=== PATIENT | female | born 1940 | race Caucasian/White ===

== ENCOUNTER 2017-02-09 02:22 | Inpatient (IN) ==
--- NOTE | 2017-02-03 15:51 | EKG Report ---
Test Performed on : 02/03/2017 3:45:47 PM Test Reason : PAT Blood Pressure : / mmHG Vent. Rate : 056 BPM Atrial Rate : 056 BPM P-R Int : 168 ms QRS Dur : 084 ms QT Int : 490 ms P-R-T Axes : 078 000 049 degrees QTc Int : 472 ms Sinus bradycardia. 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
[2017-02-03 16:11] LABS: BILIRUBIN URINE NEGATIVE (NEGATIVE); BLOOD URINE NEGATIVE (NEGATIVE); COLOR YELLOW; GLUCOSE URINE NEGATIVE (NEGATIVE); LEUKOCYTES URINE LARGE (NEGATIVE); MANUAL DIFF NEEDED? NO; NITRITE URINE NEGATIVE (NEGATIVE); PROTEIN URINE NEGATIVE (NEGATIVE); SP GRAVITY URINE 1.015; TURBIDITY URINE CLEAR (CLEAR); UR EPITHELIAL CELLS <10 /HPF (<10); URINE BACTERIA NEGATIVE /HPF; URINE MICRO REVIEW NEEDED? NO; URINE RBC <10 /HPF (<10); URINE SOURCE CLEAN CATCH; UROBILINOGEN URINE NORMAL (NORMAL)
[2017-02-03 16:17] LABS: INR 0.97; PROTIME 10.2 Seconds (9.2-11.7)
[2017-02-03 16:19] LABS: BASO% 0.2 % (0.0-0.8); EOS% 3.2 % (0.0-10.0); HEMATOCRIT 27.2 % (37.0-47.0); HEMOGLOBIN 8.6 g/dL (12.0-16.0); IMM GRAN# 0.02 X1000 (0.0-0.04); IMM GRAN% 0.3 % (0.0-0.5); LYMPH# 1.99 X1000 (1.2-3.4); LYMPH% 31.8 % (20.5-51.1); MCH 29.6 PG (27-31); MCHC 31.6 g/dL (33-37); MCV 93.5 FL (81-99); MONO# 0.58 X1000 (0.11-0.59); MONO% 9.3 % (1.7-9.3); MPV 9.9 FL (7.4-10.4); NEUT% 55.2 % (42.2-75.2); PLT 296 X1000 (130-400); RBC 2.91 XMIL (4.2-5.4)
[2017-02-03 16:51] LABS: CALCIUM 8.9 mg/dL (8.8-10.2); POTASSIUM 3.9 mmol/L (3.5-5.1)
[2017-02-09] MEDS ORDERED: PEPCID ONE (05:38)
[2017-02-09] MEDS ORDERED: LR 1,000 ML ONE ×2 (05:39→10:28)
[2017-02-09] MEDS ORDERED: REGLAN ONE (05:39)
[2017-02-09] MEDS ORDERED: KEFZOL 2 GM/D5W 2 GM/50 ML IVPB ONE (05:53)
[2017-02-09] MEDS ORDERED: VANCOMYCIN ONE (06:51)
[2017-02-09] MEDS ORDERED: TORADOL ONE (06:51)
[2017-02-09] MEDS ORDERED: SODIUM CHLORIDE 0.9% ONE (06:52)
[2017-02-09] MEDS ORDERED: EXPAREL 1.3% ONE (06:52)
[2017-02-09] MEDS ORDERED: MARCAINE 0.25% PF/EPI 1:200,000 ONE (06:52)
[2017-02-09] MEDS ORDERED: NEOSPORIN G.U. IRRIGANT ONE (06:52)
[2017-02-09] MEDS ORDERED: CYKLOKAPRON 1,000 MG/NS 1,000 MG/100 ML IVPB ONE ×2 (06:52→08:50)
[2017-02-09] MEDS ORDERED: ANTIVERT PO PRN (07:32)
[2017-02-09] MEDS ORDERED: MORPHINE IV PRN (07:33)
[2017-02-09] MEDS ORDERED: NS 250 ML ONE (07:36)
[2017-02-09 08:17] LABS: URINE MICRO REVIEW NEEDED? NO; URINE SOURCE CATH
[2017-02-09 08:23] LABS: BILIRUBIN URINE NEGATIVE (NEGATIVE); BLOOD URINE NEGATIVE (NEGATIVE); COLOR YELLOW; GLUCOSE URINE NEGATIVE (NEGATIVE); LEUKOCYTES URINE NEGATIVE (NEGATIVE); NITRITE URINE NEGATIVE (NEGATIVE); PROTEIN URINE TRACE mg/dL (NEGATIVE); SP GRAVITY URINE 1.018; TURBIDITY URINE CLEAR (CLEAR); UROBILINOGEN URINE NORMAL (NORMAL)
[2017-02-09 08:25] LABS: UR EPITHELIAL CELLS <10 /HPF (<10); URINE BACTERIA NEGATIVE /HPF; URINE RBC <10 /HPF (<10); URINE WBC <10 /HPF (<10)
--- NOTE | 2017-02-09 09:29 | OPERATIVE NOTE ---
PROCEDURE DATE: 02/09/2017 PREOPERATIVE DIAGNOSIS: Degenerative joint disease, right knee. POSTOPERATIVE DIAGNOSIS: Degenerative joint disease, right knee. PROCEDURE: Right total knee replacement. SURGEON: Benjamin Garcia MD. ASSISTANTS: DEBO Gamino, and Darron Pinon RN. ANESTHESIA: Spinal. COMPLICATIONS: None. PROCEDURE IN DETAIL: This 76-year-old female presents for a right knee replacement. Risks, benefits, and no guarantees were discussed, and she is willing to proceed. She was taken to the operating room and satisfactory anesthesia obtained. The right knee was approached through an anterior incision and a medial parapatellar quad tendon sparing arthrotomy. The patella was everted and resurfaced with freehand technique. It was subluxed laterally and the distal femur exposed. An intramedullary hole was made in the distal femur and the distal femoral cutting block secured in 5 degrees of valgus. Femoral resection was then made and the femur sized to a size 5 narrow DePuy Attune femoral component. The 4 in 1 block was secured, and the anterior, posterior, and chamfer cuts sequentially made. A notch was created for the posterior stabilized design using the provided notch guide. Afterwards, the knee was flexed and then a PCL retractor placed behind the tibia to protect the neurovascular bundle. The tibial cutting block was secured with extramedullary alignment saurabh and the tibial resection made. Flexion and extension gaps were equal. Any osteophytes were debrided about the femur or tibia. The tibia was sized to a size 4 tibial tray. Trial reduction was performed with a 5 mm thick poly with good range of motion and stability. The patella was sized to a 35 medialized dome patella. The drill holes were placed for the patella and femoral implant, and the trial implants removed. The bony surfaces were thoroughly irrigated with pulsatile lavage. Cement with a gram of vancomycin was then utilized to cement a DePuy Attune right 5 narrow femoral component, a 4 rotating platform tibial tray, and a 35 medialized dome patella. While the cement cured, excess cement was removed with a [place] elevator. The joint capsule was injected with Exparel for pain management. A Hemovac drain was placed. After curing the cement, a 5 mm, size 5 rotating platform, posterior stabilized tibial poly was placed in the tibial tray and the knee reduced. Final range of motion was 0-120 degrees of flexion with midline patellar tracking. The arthrotomy was then copiously irrigated with irrigant. It was closed over the drain with #1 Vicryl in the arthrotomy, 2-0 Vicryl in the subcutaneous, and skin taryn on the skin edges. Sterile dressings completed the closure and the patient was recovered from anesthesia and transferred to the recovery room in stable condition. Tourniquet was released with good return of capillary blood flow. No intraoperative complications were noted. Instrument count and sponge count were correct at the time of closure. cc: Roosevelt Garcia MD
[2017-02-09] MEDS ORDERED: NS 1,000 ML ONE (09:37)
[2017-02-09] MEDS ORDERED: ZOFRAN ONE (10:27)
[2017-02-09] MEDS ORDERED: DECADRON ONE (10:28)
[2017-02-09] MEDS ORDERED: EPHEDRINE ONE (10:28)
[2017-02-09] MEDS ORDERED: OFIRMEV 1000 MG/ISOTONIC SOLN 1,000 MG/100 ML BOTTLE ONE (10:28)
--- NOTE | 2017-02-09 10:33 | Diag Imaging Result Doc PS360 ---
EXAM: KNEE 1-2 VIEWS-RIGHT HISTORY: tka TECHNIQUE: Portable AP and crosstable lateral at 0940 COMMENT: there is been a total knee arthroplasty. There appears to be appropriate alignment. No other acute bony abnormalities are present. IMPRESSION: Postsurgical change Electronically signed by Leo Lopez 02/09/2017 10:31 AM
[2017-02-09] MEDS: CELEXA PO SCH ×2 (12:09→21:26)
[2017-02-09] MEDS: ZYRTEC PO SCH (12:10)
[2017-02-09] MEDS: ZYLOPRIM PO SCH (12:10)
[2017-02-09] MEDS: NEURONTIN PO SCH ×2 (12:10→21:26)
[2017-02-09] MEDS: KLONOPIN PO SCH ×2 (12:11→21:26)
[2017-02-09] MEDS: MOBIC PO SCH (12:11)
[2017-02-09] MEDS: ICAR-C PO SCH (12:11)
[2017-02-09] MEDS: LASIX PO SCH (12:11)
[2017-02-09] MEDS: COLACE PO SCH ×2 (12:12→21:26)
[2017-02-09] MEDS: NORCO-10 PO PRN ×3 (12:26→23:23)
[2017-02-09] MEDS ORDERED: VERSED ONE (13:07)
[2017-02-09] MEDS ORDERED: FENTANYL ONE (13:07)
[2017-02-09] MEDS ORDERED: DIPRIVAN 1% ONE (13:08)
--- NOTE | 2017-02-09 13:16 | PROGRESS NOTE ---
DATE: 02/09/2017 Ms Levy seen after total knee replacement. She is currently comfortable. Vital signs are all stable. The incision and bandage are all clean and dry. There is good range of motion of the foot and ankle and toes with active extension and flexion. There is good capillary refill. She appears to be stable at the present time. cc: Roosevelt Garcia MD
[2017-02-09] MEDS: KEFZOL 1 GM/D5W 1 GM/50 ML IVPB IV SCH ×2 (14:48→23:23)
[2017-02-09] MEDS ORDERED: LIPITOR PO SCH (21:00)
[2017-02-09] MEDS: NS 1,000 ML IV SCH (21:25)
[2017-02-09] MEDS: PERIDEX MT SCH (21:26)
[2017-02-10] MEDS: NS 1,000 ML IV SCH (01:23)
[2017-02-10] MEDS ORDERED: XARELTO PO SCH (06:00)
[2017-02-10 06:13] LABS: CALCIUM 8.2 mg/dL (8.8-10.2); POTASSIUM 4.5 mmol/L (3.5-5.1)
[2017-02-10 06:54] LABS: HEMOGLOBIN 7.3 g/dL (12.0-16.0)
[2017-02-10] MEDS ORDERED: PROTONIX PO SCH (07:00)
--- NOTE | 2017-02-10 07:44 | DISCHARGE SUMMARY ---
ADMISSION DATE: 02/09/2017 DISCHARGE DATE: 02/10/2017 ADMITTING DIAGNOSES: 1. Degenerative joint disease of the right knee. 2. History of coronary artery disease. 3. Gastric ulcers. DISCHARGE DIAGNOSES: 1. Degenerative joint disease of the right knee. 2. History of coronary artery disease. 3. Gastric ulcers. ADMITTING HISTORY AND HOSPITAL COURSE: A 76-year-old female with end-stage DJD about the knees. Presents for a knee replacement of the right knee. She was admitted on 02/09/2017 and underwent a right knee replacement without complication. Postoperatively, she did well and was discharged the day after surgery for home therapy and outpatient followup. At the present time, she is afebrile with stable vital signs. The incision is clean and dry with no signs of complication. She is to follow up with me in roughly 10-14 days. She is to return in the interim for any worsening signs or symptoms. DISCHARGE MEDICATIONS: Include allopurinol 300 mg, atorvastatin 10 mg, citalopram 200 mg, clonazepam 1 mg, Lasix 40 mg, gabapentin 300 mg, [place] 10 one to two every 4-6 hours p.r.n. pain, levofloxacin 250 mg for 10 days, meclizine 25 mg, pantoprazole 40 mg, Protonix 20 mg, and Xarelto 10 mg daily for 2 weeks. cc: Roosevelt Garcia MD
[2017-02-10 08:21] VITALS: BP 114/47
[2017-02-10] MEDS: MOBIC PO SCH (09:39)
[2017-02-10] MEDS: CELEXA PO SCH (09:39)
[2017-02-10] MEDS: COLACE PO SCH (09:39)
[2017-02-10] MEDS: ZYRTEC PO SCH (09:39)
[2017-02-10] MEDS: NEURONTIN PO SCH (09:39)
[2017-02-10] MEDS: PERIDEX MT SCH (09:40)
[2017-02-10] MEDS: KLONOPIN PO SCH (09:40)
[2017-02-10] MEDS: LASIX PO SCH (09:40)
[2017-02-10] MEDS: ZYLOPRIM PO SCH (09:40)
[2017-02-10] MEDS: ICAR-C PO SCH (09:40)
== END 2017-02-10 11:32 | disposition home health service (06) ==
LOC: SURHOLD 02:22 → 4N 08:23
PROVIDERS: ADMIT Orthopaedic Surgery Adult Reconstructive Orthopaedic Surgery; ATTEND Orthopaedic Surgery Adult Reconstructive Orthopaedic Surgery

== ENCOUNTER 2017-05-04 04:19 | Inpatient (IN) ==
[2017-04-28 10:18] LABS: MANUAL DIFF NEEDED? NO
[2017-04-28 10:18] LABS: URINE MICRO REVIEW NEEDED? NO; URINE SOURCE CLEAN CATCH
--- NOTE | 2017-04-28 10:23 | EKG Report ---
Test Performed on : 04/28/2017 09:46:38 AM Test Reason : PAT Blood Pressure : / mmHG Vent. Rate : 053 BPM Atrial Rate : 053 BPM P-R Int : 170 ms QRS Dur : 092 ms QT Int : 498 ms P-R-T Axes : 059 -16 049 degrees QTc Int : 467 ms Sinus bradycardia. 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
[2017-04-28 10:31] LABS: BILIRUBIN URINE NEGATIVE (NEGATIVE); BLOOD URINE NEGATIVE (NEGATIVE); COLOR YELLOW; GLUCOSE URINE NEGATIVE (NEGATIVE); LEUKOCYTES URINE SMALL (NEGATIVE); NITRITE URINE NEGATIVE (NEGATIVE); PROTEIN URINE NEGATIVE (NEGATIVE); SP GRAVITY URINE 1.005; TURBIDITY URINE HAZY (CLEAR); UROBILINOGEN URINE NORMAL (NORMAL)
[2017-04-28 10:31] LABS: BASO% 0.2 % (0.0-0.8); EOS# 0.17 X1000 (0.0-0.7); EOS% 2.7 % (0.0-10.0); HEMATOCRIT 33.1 % (37.0-47.0); HEMOGLOBIN 10.3 g/dL (12.0-16.0); IMM GRAN# 0.02 X1000 (0.0-0.04); IMM GRAN% 0.3 % (0.0-0.5); LYMPH% 27.2 % (20.5-51.1); MCH 28.9 PG (27-31); MCHC 31.1 g/dL (33-37); MCV 92.7 FL (81-99); MONO# 0.63 X1000 (0.11-0.59); MONO% 10.1 % (1.7-9.3); MPV 10.4 FL (7.4-10.4); NEUT% 59.5 % (42.2-75.2); PLT 318 X1000 (130-400); RBC 3.57 XMIL (4.2-5.4)
[2017-04-28 10:33] LABS: UR EPITHELIAL CELLS <10 /HPF (<10); URINE BACTERIA NEGATIVE /HPF; URINE RBC <10 /HPF (<10); URINE WBC <10 /HPF (<10)
[2017-04-28 10:44] LABS: INR 0.96; PTT 26.8 Seconds (22.0-36.0)
[2017-05-04] MEDS ORDERED: LR 1,000 ML ONE (05:42)
[2017-05-04] MEDS ORDERED: KEFZOL 2 GM/D5W 2 GM/50 ML IVPB ONE (05:48)
[2017-05-04] MEDS ORDERED: DIPRIVAN 1% 1,000 MG/100 ML BOTTLE ONE (06:24)
[2017-05-04] MEDS ORDERED: PEPCID ONE (06:31)
[2017-05-04] MEDS ORDERED: VERSED ONE (06:31)
[2017-05-04] MEDS ORDERED: COLACE ONE (06:31)
[2017-05-04] MEDS ORDERED: FENTANYL ONE (06:32)
[2017-05-04] MEDS ORDERED: LYRICA ONE ×2 (06:32→07:00)
[2017-05-04] MEDS ORDERED: TORADOL ONE (06:51)
[2017-05-04] MEDS ORDERED: CYKLOKAPRON 1,000 MG/NS 1,000 MG/100 ML IVPB ONE (06:51)
[2017-05-04] MEDS ORDERED: SODIUM CHLORIDE 0.9% ONE (06:51)
[2017-05-04] MEDS ORDERED: DURAMORPH ONE (06:51)
[2017-05-04] MEDS ORDERED: VANCOMYCIN ONE (06:51)
[2017-05-04] MEDS ORDERED: EXPAREL 1.3% ONE (06:51)
[2017-05-04] MEDS ORDERED: MARCAINE 0.25% PF ONE (06:51)
[2017-05-04] MEDS ORDERED: NEOSPORIN G.U. IRRIGANT ONE (06:51)
[2017-05-04] MEDS ORDERED: ANTIVERT PO PRN (07:34)
[2017-05-04] MEDS ORDERED: OFIRMEV 1000 MG/ISOTONIC SOLN 1,000 MG/100 ML BOTTLE ONE (07:49)
[2017-05-04] MEDS ORDERED: ATROPINE ONE (07:49)
[2017-05-04] MEDS ORDERED: EPHEDRINE ONE (07:49)
[2017-05-04] MEDS ORDERED: SODIUM CHLORIDE 0.9% 10 ML ONE (07:49)
[2017-05-04] MEDS ORDERED: DECADRON ONE (07:49)
[2017-05-04 08:26] LABS: URINE MICRO REVIEW NEEDED? NO; URINE SOURCE CATH
[2017-05-04 08:29] LABS: BILIRUBIN URINE NEGATIVE (NEGATIVE); BLOOD URINE NEGATIVE (NEGATIVE); COLOR YELLOW; GLUCOSE URINE NEGATIVE (NEGATIVE); LEUKOCYTES URINE NEGATIVE (NEGATIVE); NITRITE URINE NEGATIVE (NEGATIVE); PH URINE 5.5; PROTEIN URINE TRACE mg/dL (NEGATIVE); SP GRAVITY URINE 1.021; TURBIDITY URINE CLEAR (CLEAR); UROBILINOGEN URINE NORMAL (NORMAL)
[2017-05-04 08:30] LABS: UR EPITHELIAL CELLS <10 /HPF (<10); URINE BACTERIA NEGATIVE /HPF; URINE RBC <10 /HPF (<10); URINE WBC <10 /HPF (<10)
--- NOTE | 2017-05-04 09:31 | OPERATIVE NOTE ---
PROCEDURE DATE: 05/04/2017 PREOPERATIVE DIAGNOSIS: Degenerative joint disease left knee. POSTOPERATIVE DIAGNOSIS: Degenerative joint disease left knee. PROCEDURE PERFORMED: Left total knee replacement. SURGEON: Benjamin Garcia MD. VOICE PATHOLOGIST: Carson Valente ANESTHESIA: Spinal. COMPLICATIONS: None. PROCEDURE IN DETAIL: A 76-year-old female presents for left knee replacement. Risks, benefits, and no guarantees were discussed, and she is willing to proceed. She was taken to the hospital and admitted for surgery. She was taken to the operating room and satisfactory anesthesia obtained. The left leg was prepped and draped in usual sterile fashion. A time-out was taken to confirm operative site, procedure, and patient. The leg was then wrapped with an [employer]. Tourniquet inflated 350 mmHg. A midline incision over the front of the knee followed by a quad tendon sparing arthrotomy was made. The patella was everted and resurfaced with freehand technique and later sized to a 35 medialized dome patella. The drill paddle was used to prepare for the patellar implant. With the patella subluxed laterally, the knee was flexed and intramedullary hole made in the distal femur. The distal femoral cutting block secured in 5 degrees of valgus. Femoral resection was then made and the femur sized to a size 5 narrow DePuy Attune femoral component. The 4 in 1 block was secured and the anterior, posterior, and chamfer cuts sequentially made. The notch was created using the provided notch guide for posterior stabilized design. Afterwards, a PCL retractor was placed behind the femur and the tibia exposed with the knee flexed. Tibial cutting block was secured and the tibial resection made. Both flexion extension gaps were slightly tight and an additional 2 mm taken off the tibia with good soft tissue balance. Any osteophytes were debrided about the tibia or femur. The tibia was sized to a size 4 tibial trial plate. Trial reduction was performed with a size 4 tibial tray, a size 5 narrow femoral component, and a 6 mm poly with good range of motion and stability. The trial implants were removed. The bony surfaces were thoroughly irrigated with pulsatile lavage. Cement with a gram of vancomycin was utilized to cement a DePuy Attune size 4 rotating platform tibial base plate, a size 5 narrow left posterior stabilized femoral component, and a 35 medialized dome patella. While the cement cured, excess cement was removed with a [place] elevator. The joint capsule with Exparel for pain management. A Hemovac drain was placed. After curing the cement, a 6 mm rotating platform posterior stabilized size 5 poly was placed into the tibia. The knee was reduced. Final range of motion 0-120 degrees with midline patellar tracking. The arthrotomy was copiously irrigated and closed over the drain with #1 Vicryl in the arthrotomy, 2-0 Vicryl in the subcutaneous, and skin taryn on the skin edges. Sterile dressings completed the closure, and the patient was recovered from anesthesia and transferred to recovery room in stable condition. No intraoperative complications were noted. Instrument count and sponge count was correct at the time of closure. cc: Roosevelt Garcia MD
[2017-05-04] MEDS ORDERED: NS 1,000 ML ONE (09:47)
[2017-05-04] MEDS ORDERED: LR 500 ML ONE (09:47)
--- NOTE | 2017-05-04 10:09 | Diag Imaging Result Doc PS360 ---
EXAM: KNEE 1-2 VIEWS-LEFT HISTORY: tka TECHNIQUE: Two views COMPARISON: None. FINDINGS: There has been recent orthopedic replacement of the knee. There are anterior skin taryn and a superior surgical drain. No fracture. No dislocation. IMPRESSION: Good alignment to the femoral and tibial components following orthopedic replacement of the knee. Electronically signed by Tang Adler 05/04/2017 10:07 AM
[2017-05-04] MEDS ORDERED: MILK OF MAGNESIA PO PRN (11:00)
[2017-05-04] MEDS ORDERED: AMBIEN PO PRN (11:00)
[2017-05-04] MEDS ORDERED: MORPHINE IV PRN (11:00)
[2017-05-04] MEDS ORDERED: ZOFRAN IV PRN (11:00)
[2017-05-04] MEDS: NS 1,000 ML IV SCH ×2 (11:05→22:54)
[2017-05-04] MEDS: OXY IR PO PRN ×2 (11:56→12:52)
[2017-05-04] MEDS: ULTRAM PO SCH ×3 (12:21→22:53)
[2017-05-04] MEDS: CELEXA PO SCH ×2 (12:21→20:15)
[2017-05-04] MEDS: ZYLOPRIM PO SCH (12:23)
[2017-05-04] MEDS: ZYRTEC PO SCH (12:23)
[2017-05-04] MEDS: KLONOPIN PO SCH ×2 (12:24→20:16)
[2017-05-04] MEDS: NEURONTIN PO SCH ×2 (12:24→20:16)
[2017-05-04] MEDS: LASIX PO SCH (12:24)
[2017-05-04] MEDS: ICAR-C PO SCH (12:25)
[2017-05-04] MEDS: TYLENOL PO SCH ×2 (14:49→20:16)
[2017-05-04] MEDS: KEFZOL 2 GM/D5W 2 GM/50 ML IVPB IV SCH ×2 (14:50→22:53)
[2017-05-04] MEDS ORDERED: KEFZOL 1 GM/D5W 1 GM/50 ML IVPB IV SCH (15:30)
--- NOTE | 2017-05-04 19:13 | PROGRESS NOTE ---
DATE: 05/04/2017 SUBJECTIVE: Ms. Levy is seen for postop of a total knee replacement. OBJECTIVE: She is comfortable at the present time with minimal discomfort or pain. Bandage is clean and dry. She is motor and sensory intact. Vital signs are stable. ASSESSMENT AND PLAN: At the present time she is in stable condition. She has already been mobilizing. Will plan discharge tomorrow. cc: Roosevelt Garcia MD
[2017-05-04] MEDS: COLACE PO SCH (20:16)
[2017-05-04] MEDS: PERIDEX MT SCH (20:16)
[2017-05-04] MEDS ORDERED: LIPITOR PO SCH (21:00)
[2017-05-05] MEDS: ULTRAM PO SCH ×2 (05:51→11:24)
[2017-05-05] MEDS: TYLENOL PO SCH ×2 (05:52→11:23)
[2017-05-05] MEDS: PROTONIX PO SCH ×2 (05:52→08:04)
[2017-05-05] MEDS ORDERED: XARELTO PO SCH (06:00)
[2017-05-05 06:30] LABS: HEMATOCRIT 27.6 % (37.0-47.0); HEMOGLOBIN 8.6 g/dL (12.0-16.0)
[2017-05-05 06:39] LABS: POTASSIUM 4.6 mmol/L (3.5-5.1)
[2017-05-05 07:49] VITALS: BP 141/52
--- NOTE | 2017-05-05 08:25 | DISCHARGE SUMMARY ---
ADMISSION DATE: 05/04/2017 DISCHARGE DATE: ADMITTING DIAGNOSIS: Degenerative joint disease of the knee. DISCHARGE DIAGNOSIS: Degenerative joint disease of the knee. ADMITTING HISTORY AND HOSPITAL COURSE: A 76-year-old female with degenerative joint disease of the knee was admitted to the hospital for knee replacement. She underwent a knee replacement without complication. She was kept overnight and mobilized well. Was discharged home the first postoperative day for home therapy. She will followup with me in roughly 2 weeks time for staple removal. She is mobilizing well at the present time. She is afebrile with stable vital signs. The incision is clean and dry. There are no signs of infection or deep venous thrombosis. DISCHARGE MEDICATIONS: Include allopurinol 300 mg daily, Lipitor 10 mg daily, Zyrtec 10 mg daily, Celexa 20 mg b.i.d., clonazepam 1 mg b.i.d., Lasix 40 mg daily, gabapentin 300 mg b.i.d., iron supplementation, Antivert 12.5 mg p.o. 4 times a day as needed, Protonix 40 mg daily, Xarelto 10 mg daily for 2 weeks, baby aspirin, and [place] 10, 1-2 every 4-6 hours p.r.n. pain. cc: Roosevelt Garcia MD
[2017-05-05] MEDS ORDERED: PEPCID PO SCH (09:00)
[2017-05-05] MEDS ORDERED: DECADRON IV ONE (09:00)
[2017-05-05] MEDS: ZYRTEC PO SCH (09:09)
[2017-05-05] MEDS: LASIX PO SCH (09:09)
[2017-05-05] MEDS: COLACE PO SCH (09:09)
[2017-05-05] MEDS: NEURONTIN PO SCH (09:10)
[2017-05-05] MEDS: ICAR-C PO SCH (09:10)
[2017-05-05] MEDS: CELEXA PO SCH (09:11)
[2017-05-05] MEDS: ZYLOPRIM PO SCH (09:11)
[2017-05-05] MEDS: PERIDEX MT SCH (09:11)
[2017-05-05] MEDS: KLONOPIN PO SCH (09:16)
[2017-05-05] MEDS: OXY IR PO PRN (10:03)
== END 2017-05-05 11:46 | disposition home health service (06) ==
LOC: SURHOLD 04:19 → 4N 08:05
PROVIDERS: ADMIT Orthopaedic Surgery Adult Reconstructive Orthopaedic Surgery; ATTEND Orthopaedic Surgery Adult Reconstructive Orthopaedic Surgery